=== PATIENT | male | born 1960 | race Caucasian/White ===

== ENCOUNTER 2022-06-23 17:46 | Emergency (ER) | payer BC ==
[~2022-06-23] VITALS: Ht 167.6 cm; Wt 99.8 kg
[2022-06-23] MEDS ORDERED: KETOROLAC 30 MG/ML VIAL IM ONE (17:55)
[2022-06-23] MEDS ORDERED: BACITRACIN OINT 500 UNITS/GM PKT TP ONE (17:55)
[2022-06-23 17:56] VITALS: BP 151/91
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
[2022-06-23] MEDS ORDERED: IBUP-1842 PO (17:59)
[2022-06-23] MEDS ORDERED: BACI-416 TP (17:59)
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
--- NOTE | 2022-06-23 18:21 | NUR ---
Patient discharged with v/s stable. Written and verbal after care instructions given and explained. Patient alert, oriented and verbalized understanding of instructions. Ambulatory with steady gait. All questions addressed prior to discharge. ID band removed. Patient advised to follow up with PMD. Rx of BACITRACIN, MOTRIN given. Patient educated on indication of medication including possible reaction and side effects. Opportunity to ask questions provided and answered.
[2022-06-23 18:22] VITALS: BP 151/91
== END 2022-06-23 18:21 | disposition home or self-care (01) ==
LOC: MED 17:46
DX: T23.122A Burn of first degree of single left finger (nail) except thumb, initial encounter (principal); T31.0 Burns involving less than 10% of body surface
CPT/HCPCS: 16000; 90471; 90715; 96372; 99284; J1885